=== PATIENT | female | born 1995 | race African-American/Black ===

== ENCOUNTER 2019-09-20 19:26 | Emergency (ER) | payer OTHER, SELFPAY ==
--- NOTE | 2019-09-20 19:47 | PC.NURSE ---
no answer when called for triage
--- NOTE | 2019-09-20 20:13 | PC.NURSE ---
pt called for a third time at this time. no response
== END 2019-09-20 20:13 | disposition left against medical advice (07) ==
DX: Z53.21 Procedure and treatment not carried out due to patient leaving prior to being seen by health care provider (principal)
CPT/HCPCS: 99199

== ENCOUNTER 2019-09-23 17:10 | Emergency (ER) | payer OTHER, SELFPAY ==
[2019-09-23 17:15] VITALS: BP 141/84; PULSE 101; RESP 20; TEMP 36.4; O2SAT 100
[2019-09-23 17:20] VITALS: BP 140/80; PULSE 108; RESP 16; O2SAT 99
[2019-09-23] MEDS: LORAZEPAM INJ 2 MG/ML VIAL 1 MG IV PUSH (17:52)
--- NOTE | 2019-09-23 17:55 | ED.GENADULT ---
HPI - General Adult General Chief complaint: Anxiety Stated complaint: janell going to pass out Time Seen by Provider: 09/23/19 17:24 Source: patient and family Mode of arrival: ambulatory Limitations: no limitations History of Present Illness HPI narrative: Patient is a 24-year-old female who presents to emergency department for evaluation of feeling like she might pass with anxiety patient notes history of similar occurrences has been evaluated for this note she is currently not taking her depression or anxiety medication because it made her have headaches. Patient on arrival is in the room anxious appearing denying any pain recent illness or other complaints Related Data Home Medications Medication Instructions Recorded Confirmed cetirizine mg 09/23/19 triamcinolone acetonide TOPICAL 09/23/19 Allergies Allergy/AdvReac Type Severity Reaction Status Date / Time No Known Allergies Allergy Verified 09/23/19 17:37 Review of Systems Review of Systems: All systems reviewed & are unremarkable except as noted in HPI and below PMFSH Past Medical History Medical History Depression Social History Social History Alcohol intake: current Substance use: never Gender identity (if verbalized by the patient): Female Exam Narrative: Exam Narrative: GENERAL: Well-appearing, well-nourished, and in no acute distress. HEAD: Normocephalic, atraumatic. EYES: PERRLA and EOMI. ENT: Nares clear, no rhinorrhea or epistaxis. Mucous membranes moist. Oropharynx without tonsillar hypertrophy exudate or other lesions. NECK: Supple. No adenopathy or masses. CHEST: Clear to auscultation. No respiratory distress. No wheezes rales or rhonchi HEART: Tachycardic rate and regular rhythm. No murmur heard. Normal peripheral pulses. ABDOMEN: Soft, nontender, nondistended EXTREMITIES: Normal range of motion. No edema. SKIN: Warm, dry, no rash. NEURO: No focal deficits. Alert and oriented x3. Cranial nerves II through XII grossly intact PSYCH: Patient anxious with normal affect Course Course Emergency Course: Patient resting comfortably in the room at this time in no distress aware of case findings treatment plan and diagnosis agreeing to follow-up as directed or to return if symptoms worsen or concerns Vital Signs Vital signs: Vital Signs Temperature 97.6 F 09/23/19 17:15 Pulse Rate 101 H 09/23/19 17:15 Respiratory Rate 20 09/23/19 17:15 Blood Pressure 141/84 H 09/23/19 17:15 Pulse Oximetry 100 09/23/19 17:15 Temperature 97.6 F 09/23/19 17:15 Pulse Rate 108 H 09/23/19 17:20 Respiratory Rate 16 09/23/19 17:20 Blood Pressure 140/80 09/23/19 17:20 Pulse Oximetry 99 09/23/19 17:20 Medical Decision Making MDM Narrative Medical decision making narrative: Patient in the room in no distress aware of case findings treatment plan and diagnosis agreeing to follow-up as directed or to return if symptoms worsen or concerns Vital Signs Vital Signs: Vital Signs Temperature 97.6 F 09/23/19 17:15 Pulse Rate 101 H 09/23/19 17:15 Respiratory Rate 20 09/23/19 17:15 Blood Pressure 141/84 H 09/23/19 17:15 Pulse Oximetry 100 09/23/19 17:15 Temperature 97.6 F 09/23/19 17:15 Pulse Rate 108 H 09/23/19 17:20 Respiratory Rate 16 09/23/19 17:20 Blood Pressure 140/80 09/23/19 17:20 Pulse Oximetry 99 09/23/19 17:20 Lab Data Result diagrams: 09/23/19 17:51 09/23/19 17:51 Labs: Lab Results 09/23/19 09/23/19 Range/Units 17:51 17:51 WBC 7.6 (4.5-10.0) K/mm3 RBC 4.78 (4.2-5.4) M/mm3 Hgb 12.1 (12.0-15.0) g/dL Hct 38.3 (37.0-47.0) % MCV 80.1 (80-100) fl MCH 25.3 L (26-34) pg MCHC 31.6 L (32-36) g/dl RDW 14.2 (11.5-14.5) % Plt Count 278 (150-375) k/mm3 MPV 12.0 H (7.4-10.4) fl Immature Gran % (Aut
[2019-09-23 17:57] LABS: Basophils Absolute Auto 0.1 K/mm3 (0.0-0.1); Basophils Percent Auto 0.7 % (0.2-1.2); Eosinophils Absolute Auto 0.3 K/mm3 (0-0.3); Eosinophils Percent Auto 3.3 % (0-4.4); Hematocrit 38.3 % (37.0-47.0); Hemoglobin 12.1 g/dL (12.0-15.0); Immature Granulocyte Absolute 0.01 K/mm3 (0.00-0.031); Immature Granulocyte Percent A 0.1 % (0-0.5); Lymphocytes Absolute Auto 3.94 K/mm3 (0.9-3.2); Lymphocytes Percent Auto 51.8 % (18.3-44.2); Mean Corpuscular HGB Conc 31.6 g/dl (32-36); Mean Corpuscular Hemoglobin 25.3 pg (26-34); Mean Corpuscular Volume 80.1 fl (80-100); Monocytes Absolute Auto 0.6 K/mm3 (0.1-0.6); Monocytes Percent Auto 8.2 % (2.6-8.5); Neutrophils Absolute Auto 2.7 K/mm3 (1.3-6.7); Neutrophils Percent Auto 35.9 % (45.5-73.1); Platelet Count Result 278 k/mm3 (150-375); Red Blood Count 4.78 M/mm3 (4.2-5.4); Red Cell Distribution Width 14.2 % (11.5-14.5); White Blood Count 7.6 K/mm3 (4.5-10.0)
--- NOTE | 2019-09-23 18:11 | ECG_ITS ---
Measurements Intervals [place] Rate: 100 P: 67 CO: 198 QRS: 71 QRSD: 105 T: 32 QT: 351 QTc: 453 Interpretive Statements SINUS TACHYCARDIA BORDERLINE ST-T WAVE ABNORMALITY- ANTEROLAT/INF LEADS BORDERLINE ECG Electronically Signed On 09-24-2019 6:58:28 CDT by Connor Alonzo D.O.
[2019-09-23 18:22] LABS: Blood Urea Nitrogen 14 mg/dL (7-17); Calcium 9.5 mg/dL (8.4-10.2); Carbon Dioxide 24 mmol/L (22-30); Chloride 99 mmol/L (98-107); Estimated CRCL calculation 110 ml/min; Estimated Glomerular Filt Rate > 60; Glucose 100 mg/dL (65-105); Potassium 3.1 mmol/L (3.4-5.0); Sodium 137 mmol/L (137-145)
[2019-09-23 18:55] VITALS: BP 111/77; PULSE 96; RESP 16; O2SAT 98
[2019-09-23 18:59] LABS: Add Urine Microscopic? YES; Appearance Urine Clear (Clear); Bilirubin Urine Negative (Negative); Blood Urine Negative (Negative); Color Urine Yellow (Yellow); Glucose Urine UA Negative (Negative); Ketones Urine Negative (Negative); Leukocyte Esterase Ur Negative LEU/UL (Negative); Mucus Urine Few /lpf; Nitrate Urine Negative (Negative); Protein Urine 1+ mg/dL (Negative); RBC Urine 0-2 /hpf (0-2); Specific Grav Ur 1.028 (1.001-1.035); Squamous Epithelial Cell Urine Moderate /hpf (Few); WBC Urine 0-3 /hpf
[2019-09-23 19:08] LABS: Amphetamine Screen Urine Negative (Negative); Barbiturate Screen Urine Negative (Negative); Benzodiazepines Screen Urine Negative (Negative); Cannabinoid Screen Urine Negative (Negative); Cocaine Screen Urine Negative (Negative); Methadone Screen Urine Negative (Negative); Opiate Screen Urine Negative (Negative); Phencyclidine Screen Urine Negative (Negative)
== END 2019-09-23 18:55 | disposition home or self-care (01) ==
PROVIDERS: Emergency Medicine Emergency Medical Services; Emergency Provider Emergency Medicine
DX: F41.9 Anxiety disorder, unspecified (principal)
CPT/HCPCS: 36415; 80048; 80307; 81001; 81025; 85025; 96374; 99284; J2060

== ENCOUNTER 2020-02-16 10:07 | Emergency (ER) | payer OTHER, SELFPAY ==
[2020-02-16 10:20] VITALS: BP 124/65; PULSE 66; RESP 16; TEMP 36.8; O2SAT 100
--- NOTE | 2020-02-16 10:22 | ED.GENADULT ---
HPI - General Adult General Chief complaint: Eye Problems Stated complaint: redness/itchy Left eye Time Seen by Provider: 02/16/20 10:22 Source: patient and RN notes reviewed Mode of arrival: ambulatory Limitations: no limitations History of Present Illness HPI narrative: 24-year-old -[place] female presents with complaints of left eye redness, irritation, and itching for 1 day. Awaken this morning with LT eye matted, used warm cloth to remove content. No pain. No copious drainage. Exacerbating factors is opening eye. Relieving factors is closing eyes. Denies wearing glasses or contact lenses. No blurred vision, double vision, sensation of foreign body, or pain of eye with movement. LMP 02/02-. Remains active. The patient reports she have not been diagnosed with COVID-19. The patient reports she is not waiting for the results of a COVID-19 lab test. The patient reports she do not have fever, chills, weakness, fatigue, myalgia, or facial swelling. The patient reports she do not have a new or worsening cough or shortness of breath. Denies chest pain. The patient reports she do not have any rhinorrhea, congestion, sore throat, nausea, vomiting, abdominal pain, and diarrhea. Tolerating po intake well. Denies recent traveling. Denies concerns for COVID-19 or exposures been home with limited outdoor exposure except for essential household needs and return home. At this time, patient is not suspected of having COVID-19. Some parts of this dictation were generated by voice recognition software and may contain typographical and/or grammatical inaccuracies. Related Data Allergies Allergy/AdvReac Type Severity Reaction Status Date / Time No Known Allergies Allergy Verified 09/23/19 17:37 Review of Systems Review of Systems: Narrative: CONSTITUTIONAL: Denies fever, chills, sweats. EYES: Denies visual changes. Complains of LT eye redness, itching, and irritation. ENT: Denies rhinorrhea, congestion, sore throat, otalgia. CARDIOVASCULAR: Denies chest pain, palpitations, edema. RESPIRATORY: Denies dyspnea, wheezing, cough. GASTROINTESTINAL: Denies abdominal pain, nausea, vomiting, diarrhea. GENITOURINARY: Denies dysuria, hematuria, abnormal discharge. SKIN: Denies rash or itching. MUSCULOSKELETAL: Denies acute back pain, joint pain, or myalgia. NEUROLOGIC: Denies numbness or focal weakness. PSYCHIATRIC: Denies anxiety or depression. All systems reviewed & are unremarkable except as noted in HPI and below. [facility] Past Medical History Medical History (Updated 02/16/20 @ 10:37 by FERNY Baum) Anxiety Depression Surgical History Surgical History (Updated 02/16/20 @ 10:33 by FERNY Baum) History of elective breast augmentation Social History Social History (Updated 02/16/20 @ 10:33 by FERNY Baum) Smoking status: Never smoker Tobacco type: cigarettes Second hand tobacco smoke exposure: No Alcohol intake: current Substance use: never Living arrangements: with family Occupation/Education: unemployed Gender identity (if verbalized by the patient): Female Sexual Orientation (if Verbalized by the Patient): Straight or Heterosexual Comments At time of signature, agree with nurse past medical, surgical, social, and family history. There is no relevant family history pertinent to the presenting complaint. Exam Narrative: Exam Narrative: GENERAL: This is a well-nourished, well-developed patient, in no apparent distress. HEAD: normocephalic, atraumatic. EYES: PERRL. Sclera clear/white to RT eye only. LT eye sclera salas and clear, no swelling, no tenderness on palpation. Vision is grossly intact. No visible or palpable Hordeolum present, no drainable abscess. No foreign body or lesions were noted on eversion of upper eyelid. No concern for Lucy-orbital cellulitis or orbital cellulitis. LT 20/25 and RT 20/20 without corrective lens per Snellen Wall Chart Exam. EARS: Exter
== END 2020-02-16 10:45 | disposition home or self-care (01) ==
PROVIDERS: Emergency Provider Nurse Practitioner Family; PCP Physician Assistant
DX: H10.32 Unspecified acute conjunctivitis, left eye (principal)
CPT/HCPCS: 99213; G0463

== ENCOUNTER 2020-03-14 11:31 | Emergency (ER) | payer OTHER, SELFPAY ==
[2020-03-14 11:48] VITALS: BP 129/79; PULSE 99; RESP 18; TEMP 37; O2SAT 98
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
[2020-03-14 12:23] VITALS: BP 112/78; PULSE 78; RESP 18; O2SAT 99
== END 2020-03-14 12:25 | disposition home or self-care (01) ==
LOC: ANHED 12:22
PROVIDERS: Emergency Provider Emergency Medicine; PCP Physician Assistant
DX: S09.90XA Unspecified injury of head, initial encounter (principal); V48.6XXA Car passenger injured in noncollision transport accident in traffic accident, initial encounter; S01.511A Laceration without foreign body of lip, initial encounter
CPT/HCPCS: 99283

== ENCOUNTER 2020-10-29 17:19 | Emergency (ER) | payer OTHER, SELFPAY ==
[2020-10-29 17:22] VITALS: BP 124/79; PULSE 70; RESP 18; TEMP 36.4; O2SAT 99
[2020-10-29 17:54] VITALS: BP 125/87; O2SAT 100
--- NOTE | 2020-10-29 18:10 | ED.GENADULT ---
HPI - General Adult General Chief complaint: Headache Stated complaint: headache Time Seen by Provider: 10/29/20 17:56 Source: patient History of Present Illness HPI narrative: Patient is a 25 y/o female complaining of right sided headache starting 2 days ago. She describes her headache as sharp and rates it as 8/10. She took Exedrin which did not help. She has no nausea, vomiting, neck pain, focal weakness or numbness. Related Data Home Medications Medication Instructions Recorded Confirmed No Home Medications 10/29/20 10/29/20 Allergies Allergy/AdvReac Type Severity Reaction Status Date / Time No Known Allergies Allergy Verified 10/29/20 17:53 Review of Systems Constitutional: Constitutional: Denies chills, Denies fever(s), Reports headache(s) and Denies weakness Eyes: Eyes: Denies blurry vision ENT: Reports headache(s) and Denies neck pain Cardiovascular: Cardiovascular: Denies chest pain and Denies dyspnea Respiratory: Respiratory: Denies cough and Denies dyspnea Gastrointestinal: Gastrointestinal: Denies abdominal pain, Denies diarrhea, Denies nausea and Denies vomiting Genitourinary: Genitourinary: Denies hematuria and Denies dysuria Musculoskeletal: Musculoskeletal: Denies back pain and Denies neck pain Neurologic: Reports headache(s) and Denies weakness PMF Past Medical History Medical History (Updated 10/29/20 @ 19:12 by Kassie Garvey MD) Anxiety Depression Surgical History Surgical History History of elective breast augmentation Social History Social History Smoking status: Never smoker Tobacco type: cigarettes Second hand tobacco smoke exposure: No Alcohol intake: current Substance use: never Gender identity (if verbalized by the patient): Female Exam Const: General: no acute distress and well developed Orientation/consciousness: oriented to person, oriented to place, oriented to time and patient oriented x3 HENMT: Head: normocephalic Ears: external ears normal General nose exam: Normal external nose present Eyes: General: appearance normal, both eyes and all related structures Conjunctivae: conjunctivae normal Neck: Neck: normal visual inspection and full ROM Chest: Chest palpation & inspection: normal inspection of the chest and no tenderness Resp: Effort & Inspection: normal respiratory effort Auscultation: clear to auscultation bilaterally Cardio: Rate: regular rate Rhythm: regular rhythm GI: GI Palp: No abdominal tenderness and Yes Soft to palpation Skin: General skin exam: normal color and turgor normal Neuro: General: oriented to person, oriented to place, oriented to time and patient oriented x3 Cranial nerves: Yes CN's II-XII intact bilaterally Cognition (Neuro): normal cognition Speech: normal speech Motor exam (neuro): 5/5 motor strength present throughout Sensory Exam: normal sensation Coordination: [id number] test normal and [id number] test normal Extrem: General: normal to inspection, full ROM and no pedal edema Psych: Appearance: grossly normal Mental Status: mental status grossly normal Affect: normal affect Course Consultations Consultation #1: Rechecked. Patient feels better. She has no significant headache at this time. Date: 10/29/20 Time: 19:11 Vital Signs Vital signs: Vital Signs Temperature 36.4 C 10/29/20 17:22 Pulse Rate 70 10/29/20 17:22 Respiratory Rate 18 10/29/20 17:22 Blood Pressure 124/79 10/29/20 17:22 Pulse Oximetry 99 10/29/20 17:22 Temperature 36.3 C L 10/29/20 19:25 Pulse Rate 72 10/29/20 19:25 Respiratory Rate 16 10/29/20 19:25 Blood Pressure 124/73 10/29/20 19:25 Pulse Oximetry 98 10/29/20 19:25 Medical Decision Making Vital Signs Vital Signs: Vital Signs Temperature 36.4 C 10/29/20 17:22 Pulse Rate 70 10/29/20 17:22 Respiratory Rate
[2020-10-29 18:29] LABS: Basophils Percent Auto 0.8 % (0.2-1.2); Eosinophils Absolute Auto 0.2 K/mm3 (0-0.3); Eosinophils Percent Auto 4.1 % (0-4.4); Hematocrit 38.1 % (37.0-47.0); Hemoglobin 12.2 g/dL (12.0-15.0); Immature Granulocyte Absolute 0.01 K/mm3 (0.00-0.031); Immature Granulocyte Percent A 0.2 % (0-0.5); Lymphocytes Absolute Auto 2.33 K/mm3 (0.9-3.2); Mean Corpuscular Volume 81.1 fl (80-100); Mean Platelet Volume 10.4 fl (7.4-10.4); Monocytes Absolute Auto 0.5 K/mm3 (0.1-0.6); Monocytes Percent Auto 10.9 % (2.6-8.5); Neutrophils Absolute Auto 1.7 K/mm3 (1.3-6.7); Platelet Count Result 317 k/mm3 (150-375); Red Cell Distribution Width 14.3 % (11.5-14.5); White Blood Count 4.9 K/mm3 (4.5-10.0)
[2020-10-29 18:35] LABS: Add Urine Microscopic? YES; Appearance Urine Clear (Clear); Bacteria Urine Trace /hpf; Bilirubin Urine Negative (Negative); Blood Urine 2+ (Negative); Color Urine Yellow (Yellow); Glucose Urine UA Negative (Negative); Ketones Urine Negative (Negative); Leukocyte Esterase Ur Negative LEU/UL (Negative); Mucus Urine Rare /lpf; Nitrate Urine Negative (Negative); Protein Urine Negative (Negative); RBC Urine 0-2 /hpf (0-2); Specific Grav Ur 1.013 (1.001-1.035); Squamous Epithelial Cell Urine Moderate /hpf (Few); WBC Urine 0-3 /hpf
[2020-10-29] MEDS: SODIUM CHLORIDE 0.9% IV 1,000 ML 999 ML IV CONT (18:35)
[2020-10-29] MEDS: diphenhydrAMINE HCl INJ 50 MG/ML VIAL 25 MG IV PUSH (18:36)
[2020-10-29 18:38] LABS: Anion Gap 8 mmol/L (8-16); Blood Urea Nitrogen 13 mg/dL (7-17); Calcium 9.6 mg/dL (8.4-10.2); Carbon Dioxide 29 mmol/L (22-30); Chloride 102 mmol/L (98-107); Estimated CRCL calculation 80 ml/min; Estimated Glomerular Filt Rate > 60; Glucose 86 mg/dL (65-105); Potassium 3.7 mmol/L (3.4-5.0); Sodium 139 mmol/L (137-145)
[2020-10-29] MEDS: METOCLOPRAMIDE HCL INJ 10 MG/2 ML VIAL IV PUSH (18:38)
[2020-10-29] MEDS: KETOROLAC 30 MG/ML VIAL (*BKC) IV PUSH (18:41)
[2020-10-29 19:25] VITALS: BP 124/73; PULSE 72; RESP 16; TEMP 36.3; O2SAT 98
== END 2020-10-29 19:26 | disposition home or self-care (01) ==
PROVIDERS: Emergency Provider Emergency Medicine; PCP Physician Assistant
DX: G43.909 Migraine, unspecified, not intractable, without status migrainosus (principal)
CPT/HCPCS: 36415; 80048; 81001; 85025; 96361; 96374; 96375; 99284; J1200; J1885; J2765; J7030

== ENCOUNTER 2020-11-30 09:55 | Outpatient (CLI) | payer OTHER, SELFPAY ==
--- NOTE | 2020-11-30 | ECG_ITS ---
Measurements Intervals [place] Rate: 69 P: 66 [place]: 212 QRS: 70 QRSD: 94 T: 33 QT: 341 QTc: 367 Interpretive Statements SINUS RHYTHM WITH SINUS ARRHYTHMIA WITH FIRST DEGREE AV BLOCK BASELINE ARTIFACT- I, II, AVR ABNORMAL ECG Electronically Signed On 11-30-2020 10:50:56 CDT by Connor Alonzo D.O.
== END 2020-11-30 09:56 | disposition home or self-care (01) ==
PROVIDERS: PCP Physician Assistant; Visit Provider Physician Assistant
DX: Z01.810 Encounter for preprocedural cardiovascular examination (principal); R94.31 Abnormal electrocardiogram [ECG] [EKG]
CPT/HCPCS: 93005

== ENCOUNTER 2021-06-21 10:45 | Emergency (ER) | payer OTHER, SELFPAY | END 2021-06-21 11:16 | disposition left against medical advice (07) | LOC: EXPCOLL 10:48 | PROVIDERS: Emergency Provider Nurse Practitioner; PCP Physician Assistant | DX: Z53.21 Procedure and treatment not carried out due to patient leaving prior to being seen by health care provider (principal) | CPT/HCPCS: 99199 ==

== ENCOUNTER 2022-03-13 20:26 | Emergency (ER) | payer OTHER, SELFPAY ==
--- NOTE | ~2022-03-13 | US_ITS ---
EXAMINATION: US OB <=14 wk fetus w TV DATE: 03/14/2022 00:13 INDICATION: Left lower quadrant cramping. . Vaginal bleeding. TECHNIQUE: Real-time transabdominal and transvaginal pelvic ultrasound was performed. COMPARISON: None. FINDINGS: TRANSABDOMINAL ULTRASOUND: The uterus measures 8.4 x 6.5 x 4.8 cm. TRANSVAGINAL ULTRASOUND: There is no visible intrauterine gestational sac. There is trace fluid in th e endometrial complex. The right ovary measures 3.5 x 2.2 x 3.6 cm. The left ovary measures 2.9 x 2.9 x 1.9 cm. There is no free fluid in the pelvis. IMPRESSION: 1. No visible intrauterine gestational sac, which may be normal in early . Spontaneous abor tion and ectopic are not excluded. Serial beta hCGs are recommended. Reviewed, dictated and finalized at location A. IMPRESSION: 1. No visible intrauterine gestational sac, which may be normal in early pregn shaun. Spontaneous and ectopic are not excluded. Serial beta hCGs are recommended.
[2022-03-13 20:31] VITALS: BP 137/87; PULSE 75; RESP 16; TEMP 36.5; O2SAT 98
[2022-03-13 21:06] LABS: Basophils Percent Auto 0.6 % (0.2-1.2); Eosinophils Absolute Auto 0.2 K/mm3 (0-0.3); Eosinophils Percent Auto 2.4 % (0-4.4); Hematocrit 34.4 % (37.0-47.0); Immature Granulocyte Absolute 0.02 K/mm3 (0.00-0.031); Immature Granulocyte Percent A 0.3 % (0-0.5); Lymphocytes Absolute Auto 2.25 K/mm3 (0.9-3.2); Lymphocytes Percent Auto 31.2 % (18.3-44.2); Mean Corpuscular Hemoglobin 25.6 pg (26-34); Mean Platelet Volume 11.1 fl (7.4-10.4); Monocytes Absolute Auto 0.6 K/mm3 (0.1-0.6); Monocytes Percent Auto 8.6 % (2.6-8.5); Neutrophils Absolute Auto 4.1 K/mm3 (1.3-6.7); Neutrophils Percent Auto 56.9 % (45.5-73.1); Platelet Count Result 284 k/mm3 (150-375); Red Cell Distribution Width 14.5 % (11.5-14.5); White Blood Count 7.2 K/mm3 (4.5-10.0)
[2022-03-13 21:07] LABS: Add Urine Microscopic? YES; Appearance Urine Slightly Cloudy (Clear); Bilirubin Urine 1+ (Negative); Blood Urine 3+ (Negative); Glucose Urine UA Negative (Negative); Ketones Urine Negative (Negative); Leukocyte Esterase Ur Negative LEU/UL (Negative); Nitrate Urine Negative (Negative); Protein Urine 2+ mg/dL (Negative); Specific Grav Ur >= 1.030 (1.001-1.035); pH Urine 6.5 (5.0-9.0)
[2022-03-13 21:15] LABS: Mucus Urine Few /lpf; RBC Urine >75 /hpf (0-2); Squamous Epithelial Cell Urine Few /hpf (Few); WBC Urine 0-3 /hpf
[2022-03-13 21:16] LABS: Color Urine Light Red (Yellow)
--- NOTE | 2022-03-13 22:31 | ED.PREGNANCY ---
HPI - General Chief complaint: Vaginal Bleeding Stated complaint: Vaginal bleeding approx 7wks preg Time Seen by Provider: 03/13/22 21:57 Source: patient Mode of arrival: ambulatory Limitations: no limitations History of Present Illness HPI Narrative: Patient is a 26-year-old female, G3, P1, who presents the ED with report of vaginal bleeding. Patient reports she had a positive home test last week. According to her last normal menstrual period she would be around 7 weeks gestation. She has not established care with an JUNIOR ASSISTANT MANAGER yet and has not had an ultrasound. Tonight after eating dinner, she began having lightheadedness and cramping in her lower abdomen. She then began bleeding vaginally, noting she passed several clots. She states she can feel the blood rushing when she stands up. Has not taking anything for pain prior to arrival. No nausea, vomiting, fever, urinary symptoms. Related Data Home Medications Medication Instructions Recorded Confirmed ascorbate calcium (vitamin C) 500 500 mg PO DAILY 10/16/21 10/16/21 mg tablet Allergies Allergy/AdvReac Type Severity Reaction Status Date / Time No Known Allergies Allergy Verified 03/13/22 20:29 Review of Systems Review of Systems: CONSTITUTIONAL: Denies fever, chills, or sweats. CARDIOVASCULAR: Denies chest pain. RESPIRATORY: Denies dyspnea. GASTROINTESTINAL: Reports lower abdomen cramping. Denies nausea, vomiting, or diarrhea. GENITOURINARY: Reports vaginal bleeding. Denies dysuria or hematuria. NEUROLOGIC: Reports lightheadedness. All systems reviewed & are unremarkable except as noted in HPI and below PMFSH Past Medical History Medical History (Updated 03/14/22 @ 02:43 by Suri Guillen PA-C) Anxiety Depression History of miscarriage Surgical History Surgical History History of elective breast augmentation Social History Social History Smoking status: Never smoker Tobacco type: cigarettes Second hand tobacco smoke exposure: No Alcohol intake: current Substance use: never Gender identity (if verbalized by the patient): Female Sexual Orientation (if Verbalized by the Patient): Straight or Heterosexual Exam Narrative: GENERAL: Well appearing, well-nourished, non-toxic, in no acute distress. HEAD: Normocephalic, atraumatic. NECK: Supple. No adenopathy, no masses. RESPIRATORY: Airway patent, respirations nonlabored. Clear to auscultation bilaterally, no rales, rhonchi, wheezing. CARDIOVASCULAR: Regular rate and rhythm without murmurs, rubs, or gallops. Peripheral pulses 2+ and equal bilaterally. ABDOMINAL: Soft, tenderness to palpation in left lower quadrant and suprapubic region. Nondistended, no hepatosplenomegaly. Normoactive BS. PELVIC: Normal external genitalia. Moderate amount of dark red blood present in vaginal vault, but no pooling of blood or hemorrhaging. Able to clear blood with long q-tip swabs. Several dark red clots removed. Cervix appeared open and elongated, blood coming from os. Half-dollar sized oval red/partially clear tissue like sac removed from vaginal vault and placed in specimen cup. MUSCULOSKELETAL: Moves all extremities. Strength/ROM intact without gross deformities. SKIN: Warm, dry, normal color. No rashes. NEURO: A&O X3. Speech clear. Cranial nerves II-XII grossly intact. Steady gait. No ataxic movements. PSYCHIATRIC: Appropriate mood and affect. Normal interaction. Course Consultations Consultation #1: Discussed case with Dr. Stevens, JUNIOR ASSISTANT MANAGER on-call, recommended beta-hCG on Friday and follow-up in the office next week. Date: 03/14/22 Vital Signs Vital signs: Vital Signs Temperature 97.7 F 03/13/22 20:31 Pulse Rate 75 03/13/22 20:31 Respiratory Rate 16 03/13/22 20:31 Blood Pressure 137/87 03/13/22 20:31 Pulse Oximetry 98 03/13/22 20:31 Oxygen
[2022-03-14 00:51] LABS: Alanine Aminotransferase 13 U/L (6-35); Albumin Level 4.1 g/dL (3.5-5.1); Alkaline Phosphatase 42 U/L (38-126); Anion Gap 5 mmol/L (8-16); Aspartate Amino Transferase 23 U/L (14-36); Bilirubin,Total 0.2 mg/dL (0.2-1.3); Blood Urea Nitrogen 10 mg/dL (7-17); Calcium 8.7 mg/dL (8.4-10.2); Carbon Dioxide 25 mmol/L (22-30); Chloride 100 mmol/L (98-107); Estimated CRCL calculation 108 ml/min; Estimated Glomerular Filt Rate > 60; Glucose 141 mg/dL (65-110); Potassium 3.5 mmol/L (3.4-5.0); Sodium 130 mmol/L (137-145)
[2022-03-14 02:25] VITALS: BP 110/62; PULSE 88; RESP 16; O2SAT 100
== END 2022-03-14 03:23 | disposition home or self-care (01) ==
PROVIDERS: Emergency Medicine; Physician Assistant; Emergency Provider Emergency Medicine; PCP Physician Assistant
DX: O03.9 Complete or unspecified spontaneous abortion without complication (principal)
CPT/HCPCS: 36415; 76801; 76817; 80053; 81001; 84702; 85025; 85461; 96365; 99284; J0131

== ENCOUNTER 2022-09-13 07:58 | Emergency (ER) | payer OTHER, SELFPAY ==
--- NOTE | ~2022-09-13 | XR_ITS ---
Lumbosacral Spine: AP and lateral views Clinical History: Pain Findings: The normal lordotic curve is maintained. The vertebral bodies and posterior elements are i ntact. The intervertebral disc spaces are preserved. The sacroiliac joints are normally outlined. Impression: No significant abnormality. Reviewed, dictated and finalized at [facility] [place]. PULLER Impression: No significant abnormality.
[2022-09-13 07:59] VITALS: BP 136/88; PULSE 74; RESP 16; TEMP 36.9; O2SAT 100
[2022-09-13] MEDS: KETOROLAC 30 MG/ML VIAL (*BKC) IM (09:33)
[2022-09-13 09:35] VITALS: BP 120/76; PULSE 76; RESP 16; O2SAT 100
--- NOTE | 2022-09-13 09:36 | ED.BACK ---
HPI - Back Pain/Injury General Chief Complaint: Back Pain/Injury Stated Complaint: LOWER BACK PAIN [id number] Time Seen by Provider: 09/13/22 08:55 History of Present Illness HPI Narrative: Patient is a 27-year-old female here for back pain over the past 2 and half years. Patient states that the pain is present in her lower back and does not radiate. She denies any injury to her low back. The pain is worse with certain movements. Over the past week or so the pain has gotten worse. She has not attempted any medicine for her pain. She saw a chiropractor and believes her pain got worse. Denies any fevers, chills, nausea, vomiting, dysuria, urgency, frequency, numbness or tingling or weakness in her legs. No incontinence or retention, bladder or saddle anesthesia. Related Data Home Medications Medication Instructions Recorded Confirmed ascorbate calcium (vitamin C) 500 500 mg PO DAILY 10/16/21 04/16/22 mg tablet Allergies Allergy/AdvReac Type Severity Reaction Status Date / Time No Known Allergies Allergy Verified 09/13/22 08:24 Review of Systems Review of Systems: Gen.: Denies fevers or chills Eyes: Denies eye pain or visual change ENT: Denies congestion Respiratory: Denies shortness of breath or cough CV: Denies chest pain or palpitations GI: Denies abdominal pain nausea, emesis or diarrhea denies burning, urgency, frequency or hematuria Musculoskeletal: Reports back pain Neuro: Denies numbness, tingling, weakness or focal weakness Skin: Denies rash Except as documented, all other systems reviewed and negative [facility] Past Medical History Medical History Anxiety Depression History of miscarriage Surgical History Surgical History History of elective breast augmentation Social History Social History Smoking status: Never smoker Tobacco type: cigarettes Second hand tobacco smoke exposure: No Alcohol intake: current Substance use: never Living arrangements: with family Occupation/Education: unemployed Gender identity (if verbalized by the patient): Female Sexual Orientation (if Verbalized by the Patient): Straight or Heterosexual Exam Narrative: APPEARANCE: Well appearing, no pain in distress, well-nourished. Head: Normocephalic and atraumatic. EYES: PERRLA/EOMI, conjunctivae clear NOSE: No nasal drainage EARS: External ear normal in appearance THROAT: Oropharynx is clear. Mucous membranes are moist. NECK: Supple. No adenopathy, no masses. RESPIRATORY: Airway patent, respirations nonlabored. Clear to auscultation bilaterally, no rales, rhonchi, wheezing. CARDIOVASCULAR: Regular rate and rhythm without murmurs, rubs, or gallops. ABDOMINAL: Normoactive bowel sounds. Soft, nontender, nondistended. No rebound tenderness or guarding. MUSCULOSKELETAL: Straight leg raise negative. Normal gait. No midline tenderness to palpation of C, T or L-spine. There is paraspinal muscle tenderness. Extremities are warm and well-perfused. Moves all extremities well. No edema. NEURO: Normal speech. No focal neurologic deficits. SKIN: Skin is warm and dry. No rashes. PSYCHIATRIC: Normal affect/mood. Course Vital Signs Vital signs: Vital Signs Temperature 98.5 F 09/13/22 07:59 Pulse Rate 74 09/13/22 07:59 Respiratory Rate 16 09/13/22 07:59 Blood Pressure 136/88 09/13/22 07:59 Pulse Oximetry 100 09/13/22 07:59 Oxygen Delivery Room Air 09/13/22 07:59 Temperature 98.5 F 09/13/22 07:59 Pulse Rate 76 09/13/22 09:35 Respiratory Rate 16 09/13/22 09:35 Blood Pressure 120/76 09/13/22 09:35 Pulse Oximetry 100 09/13/22 09:35 Oxygen Delivery Room Air 09/13/22 07:59 MDM - Back Pain/Injury MDM Narrative Medical decision making narrative: 27-year-old female here for back pain
== END 2022-09-13 09:46 | disposition home or self-care (01) ==
PROVIDERS: Emergency Provider Physician Assistant; PCP Physician Assistant
DX: S33.5XXA Sprain of ligaments of lumbar spine, initial encounter (principal); X58.XXXA Exposure to other specified factors, initial encounter
CPT/HCPCS: 72100; 96372; 99283; J1885

== ENCOUNTER 2022-12-02 14:41 | Outpatient (CLI) | payer OTHER, SELFPAY ==
[2022-12-02 15:07] LABS: Cholesterol 182 mg/dL (0-200); HDL Direct 57 mg/dL; Triglycerides 82 mg/dL (<150)
[2022-12-02 15:17] LABS: LDL Cholesterol Direct 108 mg/dL
== END 2022-12-02 14:42 | disposition home or self-care (01) ==
LOC: ANHLAB 14:42
PROVIDERS: PCP Physician Assistant; Visit Provider Internal Medicine Cardiovascular Disease
DX: I44.0 Atrioventricular block, first degree (principal)
CPT/HCPCS: 36415; 80061; 84443